=== PATIENT | male | born 1960 | race Two or more races ===

== ENCOUNTER 2019-12-11 19:06 | Inpatient (IN) | payer OTHER ==
[2019-12-11 20:18] VITALS: BMI 22.9
[2019-12-11] MEDS ORDERED: guaiFENesin 200 MG/10 ML 10 ML UNIT-DOSE CUPS PO PRN (20:50)
[2019-12-11] MEDS ORDERED: MENTHOL/PHENOL 1 EACH UD MM PRN (20:50)
[2019-12-11] MEDS ORDERED: MAG HYDROX/AL HYDROX/SIMETH 30 ML UNIT-DOSE CUP PO PRN (20:50)
[2019-12-11] MEDS ORDERED: ONDANSETRON *ODT* 4 MG TABLET SL PRN (20:50)
[2019-12-11] MEDS ORDERED: IBUPROFEN 400 MG TABLET (FP) PO PRN (20:50)
[2019-12-11] MEDS ORDERED: MAGNESIUM HYDROX 2400MG/30ML ORAL SUSPENSION 30 ML CUP PO PRN (20:50)
[2019-12-11] MEDS ORDERED: P-EPHED 60MG/TRIPROLIDI 2.5MG TABLET PO PRN (20:50)
[2019-12-11] MEDS ORDERED: DICYCLOMINE HCL 10 MG CAPSULE PO PRN (20:50)
[2019-12-11] MEDS ORDERED: ACETAMINOPHEN 325 MG TABLET (FP) PO PRN ×2 (20:50)
[2019-12-11] MEDS ORDERED: MAGNESIUM CITRATE 300 ML BOTTLE PO PRN (20:50)
[2019-12-11] MEDS ORDERED: NICOTINE POLACRILEX 2 MG GUM BUC PRN (20:50)
[2019-12-11] MEDS ORDERED: BISMUTH SUBSALICYLATE 524 MG/30 ML UD PO PRN (20:50)
[2019-12-11] MEDS: MELATONIN 5 MG TABLETS PO SCH (22:40)
[2019-12-11] MEDS: THIAMINE HCL 100 MG TABLET (FP) PO SCH (22:40)
[2019-12-11] MEDS: LORazepam 2 MG TABLET PO SCH (22:42)
[2019-12-12] MEDS: LORazepam 2 MG TABLET PO SCH ×4 (05:38→22:19)
[2019-12-12] MEDS: LORazepam 1 MG TABLET PO PRN (08:18)
[2019-12-12] MEDS: PRENATAL VITAMINS W/ FOLIC ACID TABLET (FP) PO SCH (10:22)
[2019-12-12] MEDS: NICOTINE 21 MG/24 HOURS TOPICAL PATCH TD SCH (10:23)
[2019-12-12 10:32] LABS: HEMATOCRIT 35.5 % (35.4-49); HEMOGLOBIN 11.7 GM/dL (11.7-16.9); MCH 30.9 pg (25.7-33.7); MCHC 32.9 g/dl (32.0-35.9); MEAN PLT VOLUME 9.5 fl (7.5-11.1); PLATELET COUNT 60 K/MM3 (134-434); RBC 3.78 M/mm3 (4.00-5.60); RDW 15.1 % (11.9-15.9); WHITE BLOOD COUNT 3.9 K/mm3 (4.0-10.0)
[2019-12-12 10:39] LABS: POTASSIUM 3.5 mmol/L (3.5-5.1)
[2019-12-12 10:52] LABS: ALBUMIN 2.9 g/dl (3.4-5.0); BLOOD UREA NITROGEN 5.8 mg/dL (7-18); CALCIUM 8.8 mg/dL (8.5-10.1)
[2019-12-12 10:56] LABS: CREATININE 0.6 mg/dL (0.55-1.3)
[2019-12-12 10:57] LABS: BILIRUBIN,TOTAL 1.4 mg/dL (0.2-1); TOT PROT 6.3 g/dl (6.4-8.2)
[2019-12-12 14:43] LABS: EPI CELLS 6 /uL (0-25.1); HYALINE CASTS 1 /uL (0-3.1); PH,URINE >= 9.0 (5.0-8.0); URINE APPEARANCE CLEAR; URINE BACTERIA 16 /uL (0-1359); URINE BILIRUBIN 1+ (NEGATIVE); URINE COLOR DK YELLOW; URINE GLUCOSE (UA) NEGATIVE (NEGATIVE); URINE KETONE TRACE (NEGATIVE); URINE LEUK ESTERASE NEGATIVE (NEGATIVE); URINE NITRITE NEGATIVE (NEGATIVE); URINE PROTEIN 3+ (NEGATIVE); URINE RBC 19 /uL (0-23.9); URINE WBC 3 /uL (0-25.8)
[2019-12-12] MEDS: MELATONIN 5 MG TABLETS PO SCH (22:19)
[2019-12-12] MEDS: THIAMINE HCL 100 MG TABLET (FP) PO SCH (22:19)
[2019-12-13] MEDS: LORazepam 1 MG TABLET PO SCH ×4 (06:09→22:15)
[2019-12-13] MEDS: LORazepam 1 MG TABLET PO PRN (08:25)
[2019-12-13] MEDS: PRENATAL VITAMINS W/ FOLIC ACID TABLET (FP) PO SCH (10:13)
[2019-12-13] MEDS: NICOTINE 21 MG/24 HOURS TOPICAL PATCH TD SCH (10:14)
[2019-12-13] MEDS ORDERED: LACTULOSE 20 GM/30 ML UDC (FOR ORAL USE ONLY) PO ONE (14:37)
[2019-12-13] MEDS: LACTULOSE 20 GM/30 ML UDC (FOR ORAL USE ONLY) PO SCH ×2 (17:55→22:15)
[2019-12-13] MEDS: THIAMINE HCL 100 MG TABLET (FP) PO SCH (22:15)
[2019-12-13] MEDS: MELATONIN 5 MG TABLETS PO SCH (22:15)
[2019-12-13] MEDS: METHOCARBAMOL 500 MG TABLET PO PRN (23:19)
[2019-12-14] MEDS ORDERED: LORazepam 0.5 MG TABLET PO PRN
[2019-12-14] MEDS ORDERED: MASKS NR ONE (01:11)
[2019-12-14] MEDS: LORazepam 0.5 MG TABLET PO SCH ×4 (06:04→22:31)
[2019-12-14] MEDS: NICOTINE 21 MG/24 HOURS TOPICAL PATCH TD SCH (10:21)
[2019-12-14] MEDS: PRENATAL VITAMINS W/ FOLIC ACID TABLET (FP) PO SCH (11:02)
[2019-12-14] MEDS: LACTULOSE 20 GM/30 ML UDC (FOR ORAL USE ONLY) PO SCH ×4 (11:02→22:30)
[2019-12-14] MEDS: THIAMINE HCL 100 MG TABLET (FP) PO SCH (22:31)
[2019-12-14] MEDS: MELATONIN 5 MG TABLETS PO SCH (22:31)
[2019-12-15] MEDS ORDERED: LORazepam 0.5 MG TABLET PO ONE (05:00)
[2019-12-15] MEDS: LACTULOSE 20 GM/30 ML UDC (FOR ORAL USE ONLY) PO SCH ×4 (11:15→21:55)
[2019-12-15] MEDS: PRENATAL VITAMINS W/ FOLIC ACID TABLET (FP) PO SCH (11:15)
[2019-12-15] MEDS: NICOTINE 21 MG/24 HOURS TOPICAL PATCH TD SCH (13:15)
[2019-12-15] MEDS: THIAMINE HCL 100 MG TABLET (FP) PO SCH (21:55)
[2019-12-15] MEDS: MELATONIN 5 MG TABLETS PO SCH (21:55)
[2019-12-16] MEDS: LACTULOSE 20 GM/30 ML UDC (FOR ORAL USE ONLY) PO SCH ×4 (10:24→21:59)
[2019-12-16] MEDS: NICOTINE 21 MG/24 HOURS TOPICAL PATCH TD SCH (10:27)
[2019-12-16] MEDS: PRENATAL VITAMINS W/ FOLIC ACID TABLET (FP) PO SCH (10:27)
[2019-12-16] MEDS: AMMONIUM LACTATE 12% LOTION 225 GM BOTTLE TP SCH ×2 (12:16→21:59)
[2019-12-16] MEDS: MELATONIN 5 MG TABLETS PO SCH (21:59)
[2019-12-16] MEDS: THIAMINE HCL 100 MG TABLET (FP) PO SCH (21:59)
[2019-12-17] MEDS: METHOCARBAMOL 500 MG TABLET PO PRN (02:16)
[2019-12-17 10:20] LABS: SGOT/AST 196 U/L (15-37); SGPT/ALT 138 U/L (13-61)
[2019-12-17] MEDS: NICOTINE 21 MG/24 HOURS TOPICAL PATCH TD SCH (10:20)
[2019-12-17] MEDS: LACTULOSE 20 GM/30 ML UDC (FOR ORAL USE ONLY) PO SCH (10:20)
[2019-12-17] MEDS: PRENATAL VITAMINS W/ FOLIC ACID TABLET (FP) PO SCH (10:20)
[2019-12-17] MEDS: AMMONIUM LACTATE 12% LOTION 225 GM BOTTLE TP SCH (10:22)
[2019-12-17 10:28] LABS: INR 1.06 (0.83-1.09); PROTHROMBIN TIME (PATIENT) 12.8 SEC (9.7-13.0)
[2019-12-17 13:31] VITALS: BP 98/62; PULSE 88; TEMP 97.1
== END 2019-12-17 12:58 | disposition other institution (70) | DRG 775 ==
LOC: YASAS 19:06 → Y3N 21:12
PROVIDERS: ADMIT Allergy & Immunology; ATTEND Allergy & Immunology
PROC: HZ2ZZZZ Detoxification Services for Substance Abuse Treatment (ICD-10-PCS; principal; 2019-12-11)
DX: F10.230 Alcohol dependence with withdrawal, uncomplicated (principal); F17.210 Nicotine dependence, cigarettes, uncomplicated; D69.6 Thrombocytopenia, unspecified; K72.90 Hepatic failure, unspecified without coma; E78.5 Hyperlipidemia, unspecified; J44.9 Chronic obstructive pulmonary disease, unspecified; R74.8 Abnormal levels of other serum enzymes; R20.0 Anesthesia of skin; R41.0 Disorientation, unspecified; R76.11 Nonspecific reaction to tuberculin skin test without active tuberculosis; R26.89 Other abnormalities of gait and mobility; R63.8 Other symptoms and signs concerning food and fluid intake; Z86.69 Personal history of other diseases of the nervous system and sense organs; Z87.81 Personal history of (healed) traumatic fracture
CPT/HCPCS: 36415; 71046-TC-FY; 80053; 81003; 82140; 82947; 84450; 84460; 85027; 85610; 86780; 86803; 93005; 93010; C9803; U0003

== ENCOUNTER 2019-12-17 13:26 | Inpatient (IN) | payer OTHER ==
--- NOTE | 2019-12-17 11:13 | HP ---
MELINDA [facility]URTADO Rehab Assess/Revision - Admission History Admitted to Rehab from: [facility] Date of Admission to Rehab: 12/17/19 - Findings Detox History & Physical reviewed: Yes Concur with findings: Yes Comments/Additional Findings: transferred from detox to rehab admission as per protocol Inpatient Rehab Admission - Rehab Decision to Admit Inpatient rehab admission?: Yes - Initial Determination Are CD services needed?: Yes Free of communicable disease: Yes Not in need of hospitalization: Yes - Rehab Admission Criteria Previous failed treatment: Yes Poor recovery environment: Yes Comorbidities: Yes Lacks judgement: Yes Patient is meeting Inpatient Rehab admission criteria:: Yes
[~2019-12-17 13:26] MED LIST: ACETAMINOPHEN 325 MG TABLET (FP) PO PRN; LOPERAMIDE HCL 2 MG CAPSULE PO PRN; MAG HYDROX/AL HYDROX/SIMETH 30 ML UNIT-DOSE CUP PO PRN; MAGNESIUM CITRATE 300 ML BOTTLE PO PRN; MAGNESIUM HYDROX 2400MG/30ML ORAL SUSPENSION 30 ML CUP PO PRN; NICOTINE POLACRILEX 2 MG GUM BC PRN; P-EPHED 60MG/TRIPROLIDI 2.5MG TABLET PO PRN; guaiFENesin 200 MG/10 ML 10 ML UNIT-DOSE CUPS PO PRN
--- OUTSIDE RECORDS SUMMARY | 2019-12-17 13:30 | XMS ---
:1960 Author Organization [facility] Support Name Relationship Address Phone VERONIKA RODRIGUEZ (CHIP) SISTER [address] [place] [address] UE Unavailable Unavailable Unavailable UE Unavailable Unavailable Unavailable JENNIFER SISTER [address] [place] [address] JENNIFER SISTER [address] [address] JENNIFER Sister [address] [place] [address] Re-disclosure Warning The records that you are about to access may contain information from federally- assisted alcohol or drug abuse programs. If such information is present, then the following federally mandated warning applies: This information has been disclosed to you from records protected by federal confidentiality rules (42 CFR part 2). The federal rules prohibit you from making any further disclosure of this information unless further disclosure is expressly permitted by the written consent of the person to whom it pertains or as otherwise permitted by 42 CFR part 2. A general authorization for the release of medical or other information is NOT sufficient for this purpose. The Federal rules restrict any use of the information to criminally investigate or prosecute any alcohol or drug abuse patient.The records that you are about to access may contain highly sensitive health information, the redisclosure of which is protected by Article 27-F of the [facility] Public Health law. If you continue you may haveaccess to information: Regarding HIV / AIDS; Provided by facilities licensed or operated by the [facility] Office of Mental Health; or Provided by the [facility] Office for People With Developmental Disabilities. If such information is present, then the following [facility] mandated warning applies: This information has been disclosed to you from confidential records which are protected by state law. State law prohibits you from making any further disclosure of this information without the specific written consent of the person to whom it pertains, or as otherwise permitted by law. Any unauthorized further disclosure in violation of state law may result in a fine or alf sentence or both. A general authorization for the release of medical or other information is NOT sufficient authorization for further disclosure. Insurance Providers Payer name Policy type Policy ID Covered Covered democrat's Policy P abel / Coverage democrat ID relationship to Jordan Inf ormation type jordan BEAC[employer] [id number] SP [id number] [employer] [id number] SP [id number] [employer] [id number] SP [id number] [facility]
--- OUTSIDE RECORDS SUMMARY | 2019-12-17 13:30 | XMS ---
:1960 Author Organization [facility] Support Name Relationship Address Phone VERONIKA RODRIGUEZ (CHIP) SISTER [address] [phone] [place] [address] UE Unavailable Unavailable Unavailable UE Unavailable Unavailable Unavailable JENNIFER SISTER [address] [place] [address] JENNIFER SISTER [address] [place] [address] JENNIFER Sister [address] [place] [address] Re-disclosure Warning The records that you are [...] is protected by Article 27-F of the [facility] Public Health law. If you continue you may haveaccess to information: Regarding HIV / AIDS; Provided by facilities licensed or operated by the [facility] Office of Mental Health; or Provided by the [facility] Office for People With Developmental Disabilities. If such information is present, then the following [facility] mandated warning applies: This information has [...] law may result in a fine or intermediate sentence or both. A general authorization for the release of medical or other information is NOT sufficient authorization for further disclosure. Insurance Providers Payer name Policy type Policy ID Covered Covered democrat's Policy P abel / Coverage democrat ID relationship to Jordan Inf ormation type jordan [employer] [id number] SP [id number] [employer] [id number] SP [id number] [employer] [id number] SP [id number] [facility]
--- NOTE | 2019-12-17 13:54 | PN ---
[facility] Progress Note Note: Pt is a 59 y/o male AUD admitted to rehab today from [address] [place] [address] after completing detox treatment. Pt was transferred to [facility] while in detox for evaluation of "altered mental status' on 12/15/19 and returned to [address] [place] [address] detox to continue detox. PMHx:COPD, Cirrhosis of Liver, Alcohol related Seizures, Hepatic Encephalopathy, Hyperammonemia(on Lactulose) Psych Hx:Denies Vital Signs - 24 hr 12/17/19 13:56 Temperature 97.7 F Pulse Rate 94 H Respiratory 16 Rate Blood Pressure 101/59 L O2 Sat by Pulse 98 Oximetry (%) Alert o x 3,nad Heent:normocephali,eomi,icteric Neuro:oob with slight unsteady gait, slight tremors extremities:no edema,skin intact,warm,dry, slightly jaundiced A:AUD Hyperammonemia Hepatic encephalopathy P-po fluids as tolerated Monitor pt and maintain safety f/u with repeat labs in the morning-Ammonia level , SGOT/AST
[2019-12-17 13:57] VITALS: TEMP 97.7
[2019-12-17] MEDS: LACTULOSE 20 GM/30 ML UDC (FOR ORAL USE ONLY) PO SCH ×3 (14:34→21:38)
[2019-12-17] MEDS: THIAMINE HCL 100 MG TABLET (FP) PO SCH (21:38)
[2019-12-17] MEDS: MELATONIN 5 MG TABLETS PO SCH (21:38)
[2019-12-17] MEDS: AMMONIUM LACTATE 12% LOTION 225 GM BOTTLE TP SCH (21:39)
[2019-12-18 06:59] VITALS: BP 132/85; PULSE 120
--- NOTE | 2019-12-18 07:54 | PN ---
[facility] Progress Note Note: SEEN FOR ONGOING CONFUSION, WANDERING ON THE UNIT, IN/OUT OF PATIENTS ROOM. CLIENT REPORTS HE DOES NOT HAVE AN APPETITE. DENIES SOB, C.P., AVH, O- CLIENT IS A/[address], VERY TREMULOUS, PLEASANTLY CONFUSED.. EYE- SLIGHT YELLOWING OF SCLERA EXTREMITIES- TREMULOUS, UNSTEADY GAIT BGM- 171 AMMONIA LEVEL ON 12/17/19 109 TRENDING DOWN LIU ELEVATED LIVER ENZYMES NOTED ON DETOX ADMISSION TRENDING DOWN LIU Vital Signs 12/18/19 06:25 Temperature 97.7 F Pulse Rate 120 H Respiratory 18 Rate Blood Pressure 132/85 O2 Sat by Pulse 96 Oximetry (%) A- ALCOHOL DEPENDENCE, ELEVATED LIVER ENZYME, HEPATIC ENCEPHALOPATHY P- 1:1 SUPERVISION FOR SAFETY CMP CASE ENDORSED TO TEAM CONTINUE TO MONITOR CLINICALLY
[2019-12-18] MEDS: LACTULOSE 20 GM/30 ML UDC (FOR ORAL USE ONLY) PO SCH ×4 (10:28→21:23)
[2019-12-18] MEDS: PRENATAL VITAMINS W/ FOLIC ACID TABLET (FP) PO SCH (10:29)
[2019-12-18] MEDS: AMMONIUM LACTATE 12% LOTION 225 GM BOTTLE TP SCH ×2 (10:29→21:22)
[2019-12-18] MEDS: NICOTINE 21 MG/24 HOURS TOPICAL PATCH TD SCH (10:29)
[2019-12-18 10:58] LABS: POTASSIUM 4.4 mmol/L (3.5-5.1)
[2019-12-18 11:02] LABS: ALBUMIN 3.5 g/dl (3.4-5.0); CALCIUM 9.8 mg/dL (8.5-10.1)
[2019-12-18 11:06] LABS: CREATININE 0.9 mg/dL (0.55-1.3)
[2019-12-18 11:07] LABS: BILIRUBIN,TOTAL 1.9 mg/dL (0.2-1); TOT PROT 7.7 g/dl (6.4-8.2)
--- NOTE | 2019-12-18 11:37 | PN ---
[facility] Progress Note Note: Pt was seen early this morning about 8:30 A.m ambulating oob around the nursing station with the NA. Report given to conventional mortgage underwriter that patient is on !:! monitoring for safety from the previous shift. Pt denies any acute discomfort and wanted a drink of water and stating he will like to smoke outside and not in here but knows he can't because he is in [place] and knows no where to get cigarette since he has none with him. Pt still with slight tremors. Vital Signs - 24 hr 12/17/19 12/17/19 12/18/19 13:56 19:25 06:25 Temperature 97.7 F 97.7 F Pulse Rate 94 H 120 H Respiratory 16 18 Rate Blood Pressure 101/59 L 132/85 O2 Sat by Pulse 98 95 96 Oximetry (%) Laboratory Tests 12/18/19 12/18/19 12/18/19 07:00 07:00 07:00 Sodium 137 Cancelled Potassium 4.4 Cancelled Chloride 104 Cancelled Carbon Dioxide 23 Cancelled Anion Gap 10 Cancelled BUN 13.0 Cancelled Creatinine 0.9 Cancelled Est GFR (CKD-EPI)AfAm 109.50 Cancelled Est GFR (CKD-EPI)NonAf 94.48 Cancelled POC Glucometer Random Glucose 161 H Cancelled Calcium 9.8 Cancelled Total Bilirubin 1.9 H Cancelled AST 174 H Cancelled ALT 137 H Cancelled Alkaline Phosphatase 168 H Cancelled Ammonia 57.90 H Total Protein 7.7 Cancelled Albumin 3.5 Cancelled 12/18/19 07:47 Sodium Potassium Chloride Carbon Dioxide Anion Gap BUN Creatinine Est GFR (CKD-EPI)AfAm Est GFR (CKD-EPI)NonAf POC Glucometer 171 Random Glucose Calcium Total Bilirubin AST ALT Alkaline Phosphatase Ammonia Total Protein Albumin Labs noted. Ammonia level going down from previous value of 109.11 Alert o x 3, coherent nad oob ambulating with slight unsteady gait A:elevated liver enzymes Hyperammonemia trending down Continue present monitoring po fluids as tolerated Nicotine replacement therapy as directed
[2019-12-18] MEDS ORDERED: FLU VACCINE (FLULAVAL) PF 60 MCG/0.5 ML SYRINGE 2020-2021 IM ONE (12:00)
[2019-12-18] MEDS: THIAMINE HCL 100 MG TABLET (FP) PO SCH (21:22)
[2019-12-18] MEDS: MELATONIN 5 MG TABLETS PO SCH (21:23)
[2019-12-19] MEDS ORDERED: LORazepam 2 MG/ML SDV VIAL IM ONE (02:41)
[2019-12-19] MEDS ORDERED: LORazepam 2 MG/ML SDV VIAL ONE (02:42)
--- NOTE | 2019-12-19 03:12 | PN ---
[facility] Progress Note Note: I was in [facility] writing a note on a patient that just came back from [facility]. I received a call from [address] [place] [address] to come immediately because a patient stuck a pen to the left side of his neck in a suicide attempt. On arrival to the floor, patient was seen bleeding from the left side of his neck agitated, combative and struggling with 3 staff. He has a history of hepatic encephalopathy and his ammonia level was 57.90 umol/L on 12/18/2019. He is on 1:1 constant observation for safety. 911 called and patient transferred to [facility] emergency room. Endorsed to Dr. Suresh at [facility]. Action:"Vital Signs Temperature 97.7 F 12/18/19 06:25 Pulse Rate 120 H 12/18/19 06:25 Respiratory Rate 18 12/18/19 06:25 Blood Pressure 132/85 12/18/19 06:25 O2 Sat by Pulse Oximetry (%) 95 12/18/19 18:47 Laboratory Last Values Sodium 137 mmol/L (136-145) 12/18/19 07:00 Sodium Cancelled 12/18/19 07:00 Potassium 4.4 mmol/L (3.5-5.1) 12/18/19 07:00 Potassium Cancelled 12/18/19 07:00 Chloride 104 mmol/L (98-107) 12/18/19 07:00 Chloride Cancelled 12/18/19 07:00 Carbon Dioxide 23 mmol/L (21-32) 12/18/19 07:00 Carbon Dioxide Cancelled 12/18/19 07:00 Anion Gap 10 MMOL/L (8-16) 12/18/19 07:00 Anion Gap Cancelled 12/18/19 07:00 BUN 13.0 mg/dL (7-18) 12/18/19 07:00 BUN Cancelled 12/18/19 07:00 Creatinine 0.9 mg/dL (0.55-1.3) 12/18/19 07:00 Creatinine Cancelled 12/18/19 07:00 Est GFR (CKD-EPI)AfAm 109.50 12/18/19 07:00 Est GFR (CKD-EPI)AfAm Cancelled 12/18/19 07:00 Est GFR (CKD-EPI)NonAf 94.48 12/18/19 07:00 Est GFR (CKD-EPI)NonAf Cancelled 12/18/19 07:00 POC Glucometer 171 UNITS (80-120) 12/18/19 07:47 Random Glucose 161 mg/dL (74-106) H 12/18/19 07:00 Random Glucose Cancelled 12/18/19 07:00 Calcium 9.8 mg/dL (8.5-10.1) 12/18/19 07:00 Calcium Cancelled 12/18/19 07:00 Total Bilirubin 1.9 mg/dL (0.2-1) H 12/18/19 07:00 Total Bilirubin Cancelled 12/18/19 07:00 AST 174 U/L (15-37) H 12/18/19 07:00 AST Cancelled 12/18/19 07:00 ALT 137 U/L (13-61) H 12/18/19 07:00 ALT Cancelled 12/18/19 07:00 Alkaline Phosphatase 168 U/L (45-117) H 12/18/19 07:00 Alkaline Phosphatase Cancelled 12/18/19 07:00 Ammonia 57.90 umol/L (11-32) H 12/18/19 07:00 Total Protein 7.7 g/dl (6.4-8.2) 12/18/19 07:00 Total Protein Cancelled 12/18/19 07:00 Albumin 3.5 g/dl (3.4-5.0) 12/18/19 07:00 Albumin Cancelled 12/18/19 07:00 Action: Wound care to the neck Ativan 2 mg IM ordered - Nurse, Nereida Shellie reports that EMS instructed him to hold medication when they took over care Transfer patient to [facility]
[2019-12-19] MEDS: LACTULOSE 20 GM/30 ML UDC (FOR ORAL USE ONLY) PO SCH ×2 (11:10→14:44)
[2019-12-19] MEDS: PRENATAL VITAMINS W/ FOLIC ACID TABLET (FP) PO SCH (11:11)
[2019-12-19] MEDS: AMMONIUM LACTATE 12% LOTION 225 GM BOTTLE TP SCH (11:11)
[2019-12-19] MEDS: NICOTINE 21 MG/24 HOURS TOPICAL PATCH TD SCH (11:11)
== END 2019-12-19 15:53 | disposition short-term general hospital (02) | DRG 772 ==
LOC: YASAS 13:26 → Y5N 13:27
PROVIDERS: ADMIT Allergy & Immunology; ATTEND Allergy & Immunology
PROC: HZ42ZZZ Group Counseling for Substance Abuse Treatment, Cognitive-Behavioral (ICD-10-PCS; principal; 2019-12-17)
DX: F10.20 Alcohol dependence, uncomplicated (principal); E72.20 Disorder of urea cycle metabolism, unspecified; K72.90 Hepatic failure, unspecified without coma; J44.9 Chronic obstructive pulmonary disease, unspecified; R26.89 Other abnormalities of gait and mobility; R25.1 Tremor, unspecified; S11.83XA Puncture wound without foreign body of other specified part of neck, initial encounter; X79.XXXA Intentional self-harm by blunt object, initial encounter; Y93.89 Activity, other specified; Y92.230 Patient room in hospital as the place of occurrence of the external cause; Y99.8 Other external cause status
CPT/HCPCS: 36415; 80053; 82140; 82962

== ENCOUNTER 2023-01-20 13:45 | Inpatient (IN) | payer OTHER ==
[2023-01-20 14:20] VITALS: BMI 24.1
[2023-01-20] MEDS ORDERED: ACETAMINOPHEN 325 MG TABLET (FP) PO PRN (16:01)
[2023-01-20] MEDS ORDERED: MAG HYDROX/AL HYDROX/SIMETH 30 ML UNIT-DOSE CUP PO PRN (16:01)
[2023-01-20] MEDS ORDERED: MAGNESIUM HYDROX 2400MG/30ML ORAL SUSPENSION 30 ML CUP PO PRN (16:01)
[2023-01-20] MEDS ORDERED: guaiFENesin 600 MG TABLET.ER (FP) PO PRN (16:01)
[2023-01-20] MEDS ORDERED: POLYETHYLENE GLYCOL (HEALTHYLAX) 3350 17 GM PACKET PO PRN (16:01)
[2023-01-20] MEDS ORDERED: ONDANSETRON *ODT* 4 MG TABLET SL PRN (16:01)
[2023-01-20] MEDS ORDERED: hydrOXYzine PAMOATE 25 MG CAPSULE (FP) PO PRN (16:01)
[2023-01-20] MEDS ORDERED: IBUPROFEN 600 MG TABLET (FP) PO PRN (16:01)
[2023-01-20] MEDS ORDERED: DICYCLOMINE HCL 10 MG CAPSULE PO PRN (16:01)
[2023-01-20] MEDS ORDERED: NICOTINE POLACRILEX 2 MG GUM BUC PRN (16:01)
[2023-01-20] MEDS ORDERED: BISMUTH SUBSALICYLATE 524 MG/30 ML PO PRN (16:01)
[2023-01-20] MEDS ORDERED: LOPERAMIDE HCL 2 MG CAPSULE PO PRN (16:01)
[2023-01-20] MEDS ORDERED: IBUPROFEN 400 MG TABLET (FP) PO PRN (16:01)
[2023-01-20] MEDS ORDERED: METHOCARBAMOL 500 MG TABLET PO PRN (16:01)
[2023-01-20] MEDS ORDERED: BENZONATATE 200 MG CAPSULE PO PRN (16:01)
[2023-01-20] MEDS ORDERED: BENZOCAINE/MENTHOL (CHLORASEPTIC ) LOZENGE MM PRN (16:01)
[2023-01-20] MEDS ORDERED: ALBUTEROL SO4 HFA INHALER IH PRN (17:11)
[2023-01-20] MEDS ORDERED: METOPROLOL TARTRATE 25 MG TABLET (FP) PO ONE (18:45)
[2023-01-20 19:16] LABS: EPI CELLS 6 /uL (0-25.1); HYALINE CASTS 0 /uL (0-3.1); URINE APPEARANCE CLEAR; URINE BACTERIA 577 /uL (0-1359); URINE BILIRUBIN NEGATIVE (NEGATIVE); URINE COLOR YELLOW; URINE GLUCOSE (UA) NEGATIVE (NEGATIVE); URINE KETONE NEGATIVE (NEGATIVE); URINE LEUK ESTERASE NEGATIVE (NEGATIVE); URINE NITRITE NEGATIVE (NEGATIVE); URINE PROTEIN 3+ (NEGATIVE); URINE RBC 3 /uL (0-23.9); URINE UROBILINOGEN 0.2 mg/dL (0.2-1.0); URINE WBC 12 /uL (0-25.8)
[2023-01-20] MEDS: ATORVASTATIN CA 20 MG TABLET (FP) PO SCH (22:04)
[2023-01-20] MEDS: MELATONIN 5 MG TABLETS PO SCH (22:04)
[2023-01-20] MEDS: THIAMINE HCL 100 MG TABLET (FP) PO SCH (22:04)
[2023-01-20] MEDS: FLUTICASONE PROP 0.05% 16 GM NASAL SPRAY NS SCH (22:19)
[2023-01-21] MEDS: metFORMIN HCL 500 MG TABLET (FP) PO SCH ×2 (06:19→17:32)
[2023-01-21] MEDS ORDERED: LEVOTHYROXINE NA 75 MCG TABLET (FP) PO SCH (07:00)
[2023-01-21] MEDS ORDERED: chlordiazePOXIDE HCL 25 MG CAPSULE PO PRN (08:57)
[2023-01-21] MEDS: LEVOTHYROXINE NA 25 MCG TABLET (FP) PO SCH (10:00)
[2023-01-21] MEDS: chlordiazePOXIDE HCL 25 MG CAPSULE PO SCH ×3 (10:00→22:14)
[2023-01-21] MEDS ORDERED: PATIENT'S OWN MEDICATION (NON-FORMULARY) (Amlodipine Besylate/Benazepril [Amlodipine-Benaz PO SCH (10:00)
[2023-01-21] MEDS: FOLIC ACID 1 MG TABLET (FP) PO SCH (10:01)
[2023-01-21] MEDS: PRENATAL VITAMINS W/ FOLIC ACID TABLET (FP) PO SCH (10:01)
[2023-01-21] MEDS: LISINOPRIL 10 MG TABLET PO SCH (10:01)
[2023-01-21] MEDS: amLODIPine BESYLATE 5 MG TABLET (FP) PO SCH (10:01)
[2023-01-21] MEDS: FLUTICASONE PROP 0.05% 16 GM NASAL SPRAY NS SCH (10:01)
[2023-01-21] MEDS: NICOTINE 14 MG/24 HOURS TOPICAL PATCH TD SCH (10:03)
[2023-01-21 10:23] LABS: HEMATOCRIT 41.1 % (35.4-49); HEMOGLOBIN 13.4 GM/dL (11.7-16.9); MCH 28.5 pg (25.7-33.7); MCHC 32.6 g/dl (32.0-35.9); MEAN CELL VOLUME 87.4 fl (80-96); PLATELET COUNT 66 10^3/uL (134-434); RDW 16.4 % (11.9-15.9); WHITE BLOOD COUNT 3.3 K/mm3 (4.0-10.0)
[2023-01-21 10:26] LABS: CHLORIDE 100 mmol/L (98-107); POTASSIUM 4.1 mmol/L (3.5-5.1); SODIUM 137 mmol/L (136-145)
[2023-01-21 10:29] LABS: CALCIUM 9.1 mg/dL (8.5-10.1)
[2023-01-21 10:31] LABS: ALBUMIN 3.5 g/dl (3.4-5.0); ANION GAP 7 mmol/L (4-13); BLOOD UREA NITROGEN 13.7 mg/dL (7-18); CO2 30 mmol/L (21-32); GLUCOSE,RANDOM 140 mg/dL (74-106)
[2023-01-21 10:34] LABS: CREATININE 0.9 mg/dL (0.55-1.3); SGOT/AST 144 U/L (15-37); SGPT/ALT 103 U/L (13-61)
[2023-01-21 10:36] LABS: BILIRUBIN,TOTAL 1.3 mg/dL (0.2-1); TOT PROT 7.2 g/dl (6.4-8.2)
[2023-01-21 10:37] LABS: ALK PHOS 87 U/L (45-117)
[2023-01-21] MEDS: TIOTROPIUM BROMIDE 2.5 MCG (SPIRIVA) RESPIMAT INHALER IH SCH (10:44)
[2023-01-21] MEDS: MELATONIN 5 MG TABLETS PO SCH (22:13)
[2023-01-21] MEDS: THIAMINE HCL 100 MG TABLET (FP) PO SCH (22:13)
[2023-01-21] MEDS: ATORVASTATIN CA 20 MG TABLET (FP) PO SCH (22:14)
[2023-01-22] MEDS: chlordiazePOXIDE HCL 25 MG CAPSULE PO SCH ×4 (05:31→22:02)
[2023-01-22] MEDS: LEVOTHYROXINE NA 25 MCG TABLET (FP) PO SCH (06:19)
[2023-01-22] MEDS: metFORMIN HCL 500 MG TABLET (FP) PO SCH ×2 (06:19→17:23)
[2023-01-22] MEDS: LISINOPRIL 10 MG TABLET PO SCH (10:17)
[2023-01-22] MEDS: amLODIPine BESYLATE 5 MG TABLET (FP) PO SCH (10:17)
[2023-01-22] MEDS: PRENATAL VITAMINS W/ FOLIC ACID TABLET (FP) PO SCH (10:17)
[2023-01-22] MEDS: FLUTICASONE PROP 0.05% 16 GM NASAL SPRAY NS SCH (10:17)
[2023-01-22] MEDS: FOLIC ACID 1 MG TABLET (FP) PO SCH (10:17)
[2023-01-22] MEDS: NICOTINE 14 MG/24 HOURS TOPICAL PATCH TD SCH (10:18)
[2023-01-22] MEDS: TIOTROPIUM BROMIDE 2.5 MCG (SPIRIVA) RESPIMAT INHALER IH SCH (10:20)
[2023-01-22 13:26] VITALS: RESP 18
[2023-01-22] MEDS: ATORVASTATIN CA 20 MG TABLET (FP) PO SCH (22:02)
[2023-01-22] MEDS: THIAMINE HCL 100 MG TABLET (FP) PO SCH (22:02)
[2023-01-22] MEDS: MELATONIN 5 MG TABLETS PO SCH (22:02)
[2023-01-23 01:34] VITALS: BP 136/82; PULSE 81; TEMP 98
[2023-01-23] MEDS ORDERED: chlordiazePOXIDE HCL 25 MG CAPSULE PO SCH (05:00)
[2023-01-23] MEDS: metFORMIN HCL 500 MG TABLET (FP) PO SCH (06:49)
[2023-01-23] MEDS: LEVOTHYROXINE NA 25 MCG TABLET (FP) PO SCH (06:50)
[2023-01-24] MEDS ORDERED: chlordiazePOXIDE HCL 10 MG CAPSULE PO PRN
[2023-01-24] MEDS ORDERED: chlordiazePOXIDE HCL 10 MG CAPSULE PO SCH (05:00)
[2023-01-25] MEDS ORDERED: chlordiazePOXIDE HCL 10 MG CAPSULE PO SCH (05:00)
[2023-01-26] MEDS ORDERED: chlordiazePOXIDE HCL 10 MG CAPSULE PO ONE (05:00)
== END 2023-01-23 07:15 | disposition short-term general hospital (02) | DRG 775 ==
LOC: YASAS 13:45 → Y3N 16:44
PROVIDERS: ADMIT Allergy & Immunology; ATTEND Surgery
PROC: HZ2ZZZZ Detoxification Services for Substance Abuse Treatment (ICD-10-PCS; principal; 2023-01-20)
DX: F10.230 Alcohol dependence with withdrawal, uncomplicated (principal); F17.210 Nicotine dependence, cigarettes, uncomplicated; I10 Essential (primary) hypertension; J44.9 Chronic obstructive pulmonary disease, unspecified; K74.60 Unspecified cirrhosis of liver; Z91.51 Personal history of suicidal behavior; Z86.11 Personal history of tuberculosis; Z83.49 Family history of other endocrine, nutritional and metabolic diseases; Z88.8 Allergy status to other drugs, medicaments and biological substances
CPT/HCPCS: 36415; 71046-TC-FY; 80053; 80307; 81003; 82962; 85027; 86780; 87086; 87635

== ENCOUNTER 2023-01-23 02:33 | Inpatient (IN) | payer OTHER ==
[2023-01-23] MEDS ORDERED: EPINEPHrine 1:1,000 0.3 MG/0.3 ML SYR IM ONE ×2 (02:43→04:08)
[2023-01-23] MEDS ORDERED: DEXAMETHASONE SOD PHOSPHATE 10 MG/1 ML VIAL IVPUSH ONE (02:43)
[2023-01-23] MEDS ORDERED: DEXAMETHASONE SOD PHOSPHATE 10 MG/1 ML VIAL ONE (02:47)
[2023-01-23] MEDS ORDERED: EPINEPHrine/PF 1 MG/1 ML (1:1,000) AMPULE ONE ×2 (02:47→03:31)
[2023-01-23] MEDS ORDERED: ROCURONIUM BROMIDE 50 MG/5 ML SYRINGE ONE ×2 (02:56→02:58)
[2023-01-23] MEDS ORDERED: ETOMIDATE 20 MG/10 ML VIAL IVPUSH ONE ×2 (02:57→02:58)
[2023-01-23] MEDS ORDERED: KETAMINE HCL 200 MG/20 ML VIAL IVPUSH ONE ×2 (02:58→04:07)
[2023-01-23] MEDS ORDERED: KETAMINE HCL 200 MG/20 ML VIAL ONE (02:59)
[2023-01-23] MEDS ORDERED: ROCURONIUM BROMIDE 50 MG/5 ML VIAL IV ONE (02:59)
[2023-01-23] MEDS ORDERED: PROPOFOL 20 ML ONE (03:02)
[2023-01-23] MEDS ORDERED: RAPID SEQUENCE INTUBATION KIT NR ONE (03:13)
[2023-01-23] MEDS ORDERED: RACEPINEPHRINE IH SOL 2.25% 11.25 MG/0.5 ML VIAL NEB ONE (03:25)
[2023-01-23] MEDS ORDERED: FAMOTIDINE 20 MG/50 ML IVPB 20 MG/50 ML MG IVPB ONE ×2 (03:40→03:41)
[2023-01-23] MEDS ORDERED: LIDOCAINE HCL 2% (20ML MULTI-DOSE VIAL) ONE (03:52)
[2023-01-23] MEDS ORDERED: ONDANSETRON 4 MG/2 ML VIAL ONE (04:04)
[2023-01-23] MEDS ORDERED: ONDANSETRON 4 MG/2 ML VIAL IVPUSH ONE (04:04)
[2023-01-23] MEDS ORDERED: SUCCINYLCHOLINE CHLORIDE 200 MG/10 ML VIAL IVPUSH ONE (04:07)
[2023-01-23 04:08] LABS: INR 0.99 (0.83-1.09); PROTHROMBIN TIME (PATIENT) 11.5 SEC (9.7-13.0)
[2023-01-23] MEDS ORDERED: PROPOFOL 200 MG/20 ML VIAL IVPUSH ONE (04:08)
[2023-01-23 04:10] LABS: ACTIVATED PTT 35.4 SECONDS (25.2-36.5)
[2023-01-23] MEDS ORDERED: RACEPINEPHRINE IH SOL 2.25% 11.25 MG/0.5 ML VIAL IH ONE (04:13)
[2023-01-23 04:20] LABS: POTASSIUM 3.9 mmol/L (3.5-5.1)
[2023-01-23 04:21] LABS: CALCIUM 9.1 mg/dL (8.5-10.1)
[2023-01-23 04:23] LABS: ALBUMIN 3.4 g/dl (3.4-5.0)
[2023-01-23 04:25] LABS: BASO % 0.8 % (0-2.0); CREATININE 0.7 mg/dL (0.55-1.3); EOS % 4.9 % (0-4.5); HEMATOCRIT 40.5 % (35.4-49); HEMOGLOBIN 13.1 GM/dL (11.7-16.9); LYMPH % 43.1 % (8-40); MCH 27.9 pg (25.7-33.7); MCHC 32.4 g/dl (32.0-35.9); MEAN CELL VOLUME 86.3 fl (80-96); MEAN PLT VOLUME 9.9 fl (7.5-11.1); MONO % 6.6 % (3.8-10.2); NEUT % 44.6 % (42.8-82.8); PLATELET COUNT 82 10^3/uL (134-434); RBC 4.69 M/mm3 (4.00-5.60); RDW 16.4 % (11.9-15.9); WHITE BLOOD COUNT 4.6 K/mm3 (4.0-10.0)
[2023-01-23 04:26] LABS: BILIRUBIN,TOTAL 0.4 mg/dL (0.2-1); TOT PROT 7.1 g/dl (6.4-8.2)
[2023-01-23] MEDS ORDERED: LABETALOL HCL 5 MG/1 ML (100MG/20 ML VIAL) IVPUSH PRN (05:04)
[2023-01-23] MEDS: INSULIN SLIDING SCALE (NOVOLOG) 1 VIAL SQ SCH ×5 (05:11→23:04)
[2023-01-23] MEDS: DEXAMETHASONE SOD PHOSPHATE 10 MG/1 ML VIAL IVPUSH SCH ×4 (05:17→21:31)
[2023-01-23] MEDS ORDERED: chlordiazePOXIDE HCL 25 MG CAPSULE PO PRN (09:02)
[2023-01-23] MEDS ORDERED: FOLIC ACID INJECTION - 1 MG, THIAMINE HCL 100 MG, MULTIVIT INJECTION ADULT 10 ML in SOD... IVPB ONE (09:26)
[2023-01-23] MEDS: FAMOTIDINE 20 MG/50 ML IVPB 20 MG/50 ML MG IVPB SCH ×2 (09:34→21:30)
[2023-01-23] MEDS: HEPARIN NA (PORCINE) 5,000 UNITS/ML 1ML VIAL SQ SCH ×2 (10:27→21:31)
[2023-01-23] MEDS ORDERED: chlordiazePOXIDE HCL 25 MG CAPSULE PO SCH (11:00)
[2023-01-23] MEDS: MUPIROCIN 2% TOPICAL OINTMENT FOR DECOLONIZATION NS SCH ×2 (14:02→21:29)
[2023-01-23] MEDS ORDERED: LORazepam 1 MG TABLET PO PRN (15:51)
[2023-01-23] MEDS: DEXMEDETOMIDINE PREMIX 400 MCG/100 ML BAG IVPB SCH ×2 (17:04→21:30)
[2023-01-23] MEDS: CHLORHEXIDINE GLUCONATE 4% CLEANSER FOR DECOLONIZATION TP SCH (21:32)
[2023-01-23] MEDS: AMITRIPTYLINE HCL 25 MG TABLET PO SCH (22:56)
[2023-01-23] MEDS: LORazepam 1 MG TABLET PO SCH (23:04)
[2023-01-24] MEDS ORDERED: chlordiazePOXIDE HCL 25 MG CAPSULE PO SCH (05:00)
[2023-01-24] MEDS: INSULIN SLIDING SCALE (NOVOLOG) 1 VIAL SQ SCH ×4 (05:43→22:11)
[2023-01-24] MEDS ORDERED: LEVOTHYROXINE NA 75 MCG TABLET (FP) PO SCH (07:00)
[2023-01-24 08:18] LABS: BASO % 0.1 % (0-2.0); HEMATOCRIT 41.5 % (35.4-49); HEMOGLOBIN 13.7 GM/dL (11.7-16.9); LYMPH % 13.2 % (8-40); MCH 28.7 pg (25.7-33.7); MCHC 32.9 g/dl (32.0-35.9); MEAN CELL VOLUME 87.3 fl (80-96); MEAN PLT VOLUME 9.3 fl (7.5-11.1); MONO % 5.5 % (3.8-10.2); NEUT % 81.2 % (42.8-82.8); PLATELET COUNT 84 10^3/uL (134-434); RBC 4.76 M/mm3 (4.00-5.60); RDW 16.1 % (11.9-15.9)
[2023-01-24 08:36] LABS: POTASSIUM 3.8 mmol/L (3.5-5.1)
[2023-01-24 08:38] LABS: ALBUMIN 3.6 g/dl (3.4-5.0)
[2023-01-24 08:39] LABS: BLOOD UREA NITROGEN 12.5 mg/dL (7-18); MAGNESIUM 1.4 mg/dL (1.8-2.4)
[2023-01-24 08:43] LABS: BILIRUBIN,TOTAL 0.5 mg/dL (0.2-1); CREATININE 0.7 mg/dL (0.55-1.3); PHOSPHOROUS 4.3 mg/dL (2.5-4.9); TOT PROT 7.9 g/dl (6.4-8.2)
[2023-01-24] MEDS ORDERED: MAGNESIUM SULFATE IN WATER 2 GM/50 ML IVPB IVPB ONE (08:51)
[2023-01-24] MEDS ORDERED: amLODIPine BESYLATE 5 MG TABLET (FP) PO SCH (10:00)
[2023-01-24] MEDS: HEPARIN NA (PORCINE) 5,000 UNITS/ML 1ML VIAL SQ SCH ×2 (10:08→20:59)
[2023-01-24] MEDS: FOLIC ACID 1 MG TABLET (FP) PO SCH (10:12)
[2023-01-24] MEDS: NICOTINE 21 MG/24 HOURS TOPICAL PATCH TD SCH ×2 (10:12→19:38)
[2023-01-24] MEDS: MUPIROCIN 2% TOPICAL OINTMENT FOR DECOLONIZATION NS SCH ×2 (10:12→21:00)
[2023-01-24] MEDS: FAMOTIDINE 20 MG/50 ML IVPB 20 MG/50 ML MG IVPB SCH ×2 (10:12→20:59)
[2023-01-24] MEDS: amLODIPine BESYLATE 5 MG TABLET (FP) PO SCH (10:12)
[2023-01-24] MEDS: LORazepam 1 MG TABLET PO SCH ×5 (10:30→22:11)
[2023-01-24] MEDS: TIOTROPIUM BROMIDE 2.5 MCG (SPIRIVA) RESPIMAT INHALER IH SCH (11:00)
[2023-01-24 13:58] VITALS: BMI 25.4
[2023-01-24] MEDS ORDERED: HALOPERIDOL LACTATE 5 MG/ML ONE (17:30)
[2023-01-24] MEDS ORDERED: HALOPERIDOL LACTATE 5 MG/ML IM ONE (17:30)
[2023-01-24] MEDS: DEXMEDETOMIDINE PREMIX 400 MCG/100 ML BAG IVPB SCH (17:45)
[2023-01-24] MEDS ORDERED: PHENobarbital SODIUM 65 MG/1 ML VIAL IVPUSH ONE (19:30)
[2023-01-24] MEDS: CHLORHEXIDINE GLUCONATE 4% CLEANSER FOR DECOLONIZATION TP SCH (21:00)
[2023-01-24] MEDS: AMITRIPTYLINE HCL 25 MG TABLET PO SCH (21:00)
[2023-01-24] MEDS: THIAMINE HCL 100 MG TABLET (FP) PO SCH (21:01)
[2023-01-24] MEDS ORDERED: hydrALAZINE HCL 20 MG/ML VIAL IVPUSH ONE (22:10)
[2023-01-25] MEDS ORDERED: chlordiazePOXIDE HCL 10 MG CAPSULE PO PRN
[2023-01-25] MEDS: LORazepam 1 MG TABLET PO SCH ×4 (04:33→22:08)
[2023-01-25] MEDS ORDERED: chlordiazePOXIDE HCL 10 MG CAPSULE PO SCH (05:00)
[2023-01-25] MEDS: INSULIN SLIDING SCALE (NOVOLOG) 1 VIAL SQ SCH ×4 (06:08→22:56)
[2023-01-25 07:57] LABS: BASO % 0.3 % (0-2.0); EOS % 0.2 % (0-4.5); HEMOGLOBIN 14.2 GM/dL (11.7-16.9); LYMPH % 29.2 % (8-40); MCH 28.9 pg (25.7-33.7); MEAN CELL VOLUME 87.4 fl (80-96); MEAN PLT VOLUME 9.8 fl (7.5-11.1); MONO % 7.5 % (3.8-10.2); NEUT % 62.8 % (42.8-82.8); PLATELET COUNT 103 10^3/uL (134-434); RBC 4.93 M/mm3 (4.00-5.60); RDW 16.1 % (11.9-15.9); WHITE BLOOD COUNT 6.5 K/mm3 (4.0-10.0)
[2023-01-25] MEDS ORDERED: hydrALAZINE HCL 20 MG/ML VIAL IVPUSH PRN (08:03)
[2023-01-25 08:07] LABS: POTASSIUM 3.8 mmol/L (3.5-5.1)
[2023-01-25 08:10] LABS: CALCIUM 8.7 mg/dL (8.5-10.1)
[2023-01-25 08:11] LABS: ALBUMIN 3.6 g/dl (3.4-5.0); BLOOD UREA NITROGEN 14.4 mg/dL (7-18)
[2023-01-25 08:14] LABS: CREATININE 0.7 mg/dL (0.55-1.3); PHOSPHOROUS 2.8 mg/dL (2.5-4.9)
[2023-01-25 08:15] LABS: BILIRUBIN,TOTAL 0.7 mg/dL (0.2-1); TOT PROT 7.5 g/dl (6.4-8.2)
[2023-01-25] MEDS: HEPARIN NA (PORCINE) 5,000 UNITS/ML 1ML VIAL SQ SCH ×2 (10:32→22:04)
[2023-01-25] MEDS: amLODIPine BESYLATE 5 MG TABLET (FP) PO SCH (10:32)
[2023-01-25] MEDS: FOLIC ACID 1 MG TABLET (FP) PO SCH (10:32)
[2023-01-25] MEDS: FAMOTIDINE 20 MG/50 ML IVPB 20 MG/50 ML MG IVPB SCH ×2 (10:32→22:04)
[2023-01-25] MEDS: NICOTINE 21 MG/24 HOURS TOPICAL PATCH TD SCH (10:38)
[2023-01-25] MEDS: MUPIROCIN 2% TOPICAL OINTMENT FOR DECOLONIZATION NS SCH ×2 (10:39→22:06)
[2023-01-25] MEDS: LEVOTHYROXINE SODIUM 100 MCG 5 ML VIAL IVPUSH SCH (10:40)
[2023-01-25] MEDS: TIOTROPIUM BROMIDE 2.5 MCG (SPIRIVA) RESPIMAT INHALER IH SCH (11:29)
[2023-01-25] MEDS: DEXMEDETOMIDINE PREMIX 400 MCG/100 ML BAG IVPB SCH ×2 (17:37→23:03)
[2023-01-25] MEDS ORDERED: POLYETHYLENE GLYCOL 3350 255 GM BTL PO ONE (20:00)
[2023-01-25] MEDS: THIAMINE HCL 100 MG TABLET (FP) PO SCH (22:04)
[2023-01-25] MEDS: CHLORHEXIDINE GLUCONATE 4% CLEANSER FOR DECOLONIZATION TP SCH (22:04)
[2023-01-25] MEDS: AMITRIPTYLINE HCL 25 MG TABLET PO SCH (22:04)
[2023-01-25] MEDS: SENNOSIDES 8.8 MG/5 ML SYRUP PO SCH (22:04)
[2023-01-25] MEDS ORDERED: POLYETHYLENE GLYCOL (HEALTHYLAX) 3350 17 GM PACKET PO ONE (23:00)
[2023-01-26] MEDS ORDERED: LORazepam 0.5 MG TABLET PO PRN
[2023-01-26] MEDS ORDERED: chlordiazePOXIDE HCL 10 MG CAPSULE PO SCH (05:00)
[2023-01-26] MEDS: LORazepam 0.5 MG TABLET PO SCH ×4 (05:02→23:49)
[2023-01-26] MEDS: INSULIN SLIDING SCALE (NOVOLOG) 1 VIAL SQ SCH ×3 (05:07→17:37)
[2023-01-26 07:13] LABS: BASO % 0.5 % (0-2.0); EOS % 0.8 % (0-4.5); HEMATOCRIT 39.6 % (35.4-49); LYMPH % 29.9 % (8-40); MCH 28.8 pg (25.7-33.7); MCHC 32.9 g/dl (32.0-35.9); MEAN CELL VOLUME 87.3 fl (80-96); MEAN PLT VOLUME 9.7 fl (7.5-11.1); MONO % 10.5 % (3.8-10.2); NEUT % 58.3 % (42.8-82.8); PLATELET COUNT 116 10^3/uL (134-434); RBC 4.54 M/mm3 (4.00-5.60); RDW 16.4 % (11.9-15.9); WHITE BLOOD COUNT 5.5 K/mm3 (4.0-10.0)
[2023-01-26 07:29] LABS: POTASSIUM 3.7 mmol/L (3.5-5.1)
[2023-01-26 07:34] LABS: CALCIUM 8.3 mg/dL (8.5-10.1)
[2023-01-26 07:35] LABS: ALBUMIN 3.2 g/dl (3.4-5.0); BLOOD UREA NITROGEN 18.4 mg/dL (7-18); MAGNESIUM 1.8 mg/dL (1.8-2.4)
[2023-01-26 07:37] LABS: PHOSPHOROUS 2.7 mg/dL (2.5-4.9)
[2023-01-26 07:38] LABS: CREATININE 0.9 mg/dL (0.55-1.3)
[2023-01-26 07:39] LABS: BILIRUBIN,TOTAL 0.7 mg/dL (0.2-1); TOT PROT 6.7 g/dl (6.4-8.2)
[2023-01-26] MEDS ORDERED: NICOTINE 7 MG/24 HOURS TOPICAL PATCH TD SCH (10:00)
[2023-01-26] MEDS: FAMOTIDINE 20 MG/50 ML IVPB 20 MG/50 ML MG IVPB SCH ×2 (10:13→22:32)
[2023-01-26] MEDS: DEXMEDETOMIDINE PREMIX 400 MCG/100 ML BAG IVPB SCH (10:13)
[2023-01-26] MEDS: amLODIPine BESYLATE 5 MG TABLET (FP) PO SCH (10:14)
[2023-01-26] MEDS: HEPARIN NA (PORCINE) 5,000 UNITS/ML 1ML VIAL SQ SCH ×2 (10:14→22:33)
[2023-01-26] MEDS: FOLIC ACID 1 MG TABLET (FP) PO SCH (10:14)
[2023-01-26] MEDS: LEVOTHYROXINE SODIUM 100 MCG 5 ML VIAL IVPUSH SCH (10:17)
[2023-01-26] MEDS: TIOTROPIUM BROMIDE 2.5 MCG (SPIRIVA) RESPIMAT INHALER IH SCH (13:43)
[2023-01-26] MEDS: MUPIROCIN 2% TOPICAL OINTMENT FOR DECOLONIZATION NS SCH (13:44)
[2023-01-26] MEDS ORDERED: amLODIPine BESYLATE 5 MG TABLET (FP) PO ONE (14:00)
[2023-01-26] MEDS: SENNOSIDES 8.8 MG/5 ML SYRUP PO SCH (22:32)
[2023-01-26] MEDS: THIAMINE HCL 100 MG TABLET (FP) PO SCH (22:33)
[2023-01-26 22:50] VITALS: RESP 18
[2023-01-27] MEDS: INSULIN SLIDING SCALE (NOVOLOG) 1 VIAL SQ SCH ×2 (00:03→05:05)
[2023-01-27] MEDS ORDERED: chlordiazePOXIDE HCL 10 MG CAPSULE PO ONE (05:00)
[2023-01-27] MEDS ORDERED: LORazepam 0.5 MG TABLET PO ONE ×2 (05:00→05:45)
[2023-01-27] MEDS ORDERED: hydrALAZINE HCL 20 MG/ML VIAL IVPUSH PRN (07:49)
[2023-01-27] MEDS ORDERED: HEPARIN NA (PORCINE) 5,000 UNITS/ML 1ML VIAL SQ SCH (10:00)
[2023-01-27] MEDS ORDERED: CHLORTHALIDONE 25 MG TABLET PO SCH (10:00)
[2023-01-27] MEDS ORDERED: LEVOTHYROXINE SODIUM 100 MCG 5 ML VIAL IVPUSH SCH (10:00)
[2023-01-27] MEDS ORDERED: NICOTINE 7 MG/24 HOURS TOPICAL PATCH TD SCH (10:00)
[2023-01-27] MEDS ORDERED: FAMOTIDINE 20 MG/50 ML IVPB 20 MG/50 ML MG IVPB SCH (10:00)
[2023-01-27] MEDS ORDERED: TIOTROPIUM BROMIDE 2.5 MCG (SPIRIVA) RESPIMAT INHALER IH SCH (10:00)
[2023-01-27] MEDS ORDERED: FOLIC ACID 1 MG TABLET (FP) PO SCH (10:00)
[2023-01-27] MEDS ORDERED: amLODIPine BESYLATE 10 MG TABLET (FP) PO SCH (10:00)
[2023-01-27] MEDS ORDERED: INSULIN SLIDING SCALE (NOVOLOG) 1 VIAL SQ SCH (11:00)
[2023-01-27 13:25] VITALS: BP 132/80; PULSE 73; TEMP 98.5
[2023-01-27] MEDS ORDERED: SENNOSIDES 8.8 MG/5 ML SYRUP PO SCH (22:00)
[2023-01-27] MEDS ORDERED: AMITRIPTYLINE HCL 25 MG TABLET PO SCH (22:00)
[2023-01-27] MEDS ORDERED: THIAMINE HCL 100 MG TABLET (FP) PO SCH (22:00)
[2023-02-01 17:07] LABS: C1Q COMPLEMENT QUANT 13.6 mg/dL (10.2-20.3)
== END 2023-01-27 14:08 | disposition home or self-care (01) | DRG 811 ==
LOC: JER 02:33 → JERBED 04:01 → JICU 04:28 → J6S 01-26 18:28
PROVIDERS: ADMIT Internal Medicine Pulmonary Disease; ATTEND Internal Medicine
PROC: 30233L1 Transfusion of Nonautologous Fresh Plasma into Peripheral Vein, Percutaneous Approach (ICD-10-PCS; principal; 2023-01-23)
PROC: 30233K1 Transfusion of Nonautologous Frozen Plasma into Peripheral Vein, Percutaneous Approach (ICD-10-PCS; 2023-01-23)
DX: T78.3XXA Angioneurotic edema, initial encounter (principal); D69.59 Other secondary thrombocytopenia; K74.60 Unspecified cirrhosis of liver; D69.6 Thrombocytopenia, unspecified; E03.9 Hypothyroidism, unspecified; E11.9 Type 2 diabetes mellitus without complications; E78.5 Hyperlipidemia, unspecified; F10.230 Alcohol dependence with withdrawal, uncomplicated; F17.200 Nicotine dependence, unspecified, uncomplicated; I10 Essential (primary) hypertension; J44.9 Chronic obstructive pulmonary disease, unspecified; K76.82 Hepatic encephalopathy; D64.9 Anemia, unspecified; T46.4X5A Adverse effect of angiotensin-converting-enzyme inhibitors, initial encounter; X58.XXXA Exposure to other specified factors, initial encounter; Y93.9 Activity, unspecified; Y92.9 Unspecified place or not applicable
CPT/HCPCS: 36415; 36430; 80053; 82962; 83735; 84100; 84484; 85025; 85610; 85730; 86160; 86850; 86900; 86901; 87635; 93005; 93010; 99285-25; J0171; J1100; J1644; P9017